=== PATIENT | female | born 1965 | race Caucasian/White ===

== ENCOUNTER → 2023-06-04 18:34 | Outpatient (REF) | payer BC, SELFPAY | LOC: MRI 18:34 | PROVIDERS: ATTENDING PHYSICIAN Podiatrist Foot & Ankle Surgery; FAMILY PHYSICIAN Family Medicine | DX: G57.62 Lesion of plantar nerve, left lower limb (principal) | CPT/HCPCS: 73718 ==

== ENCOUNTER → 2023-07-07 12:47 | Outpatient (REF) | payer BC, SELFPAY | LOC: HWWDC 12:47 | PROVIDERS: ATTENDING PHYSICIAN Family Medicine | DX: Z12.31 Encounter for screening mammogram for malignant neoplasm of breast (principal) | CPT/HCPCS: 77063; 77067 ==

== ENCOUNTER → 2023-11-17 07:08 | Outpatient (REF) | payer BC, SELFPAY ==
[2023-11-17 07:38] LABS: % Basophils 1.2 % (0-2); % Eosinophils 3.2 % (0-6); % Lymphocytes 47.7 % (20.5-51.1); % Monocytes 10.7 % (1.7-9.3); % Neutrophils 37.2 % (42.2-75.2); Absolute Eosinophils 0.1 10^3/uL (0-0.7); Absolute Lymphocytes 1.7 10^3/uL (1.2-3.4); Absolute Monocytes 0.4 10^3/uL (0.1-0.6); Absolute Neutrophils 1.3 10^3/uL (1.4-6.5); Hemoglobin 13.3 g/dL (12.0-16.0); Mean Corp Hgb Conc. 34.1 g/dL (33.0-37.0); Mean Corpuscular Hgb 30.6 pg (27.0-31.0); Mean Corpuscular Volume 89.7 fL (81.0-99.0); Mean Platelet Volume 10.3 fL (7.4-10.4); Nucleated Red Blood Cells % 0 %; Platelet Count 220 10^3/uL (130-400); Red Blood Cell Count 4.35 10^6/uL (4.20-5.40); Red Cell Dist. Width 11.8 % (11.5-14.5); White Blood Cell Count 3.5 10^3/uL (4.8-10.8)
[2023-11-17 08:12] LABS: ALT (SGPT) 30 U/L (0-35); AST (SGOT) 39 U/L (14-36); Albumin 4.8 g/dl (3.5-5.0); Alkaline Phosphatase 66 U/L (38-126); Blood Urea Nitrogen 12 mg/dl (7-17); Calcium 9.5 mg/dl (8.4-10.2); Carbon Dioxide 24 mmol/L (22-30); Chloride 102 mmol/L (98-107); Glucose 99 mg/dl (70-99); HDL Cholesterol 70 mg/dl; LDL Cholesterol, Calculated 107 mg/dl; Potassium 4.5 mmol/L (3.5-5.1); Sodium 142 mmol/L (135-145); Total Bilirubin 0.8 mg/dl (0.2-1.3); Total Cholesterol 193 mg/dl (50-199); Total Protein 7.3 g/dl (6.3-8.2); Triglyceride 82 mg/dl (10-149); Very Low Density Lipoprotein 16 mg/dl (0-30); eGFR > 60.00
== END ==
LOC: REG 07:08
PROVIDERS: ATTENDING PHYSICIAN Family Medicine
DX: E78.2 Mixed hyperlipidemia (principal); R79.9 Abnormal finding of blood chemistry, unspecified; R03.0 Elevated blood-pressure reading, without diagnosis of hypertension; N80.9 Endometriosis, unspecified
CPT/HCPCS: 36415; 80053; 80061; 85025

== ENCOUNTER → 2024-02-24 13:28 | Outpatient (REF) | payer BC, SELFPAY ==
[2024-02-24 14:33] LABS: % Basophils 0.6 % (0-2); % Eosinophils 1.5 % (0-6); % Immature Granulocytes 0.2 % (0-0.5); % Lymphocytes 39.7 % (20.5-51.1); % Monocytes 7.6 % (1.7-9.3); % Neutrophils 50.4 % (42.2-75.2); Absolute Eosinophils 0.1 10^3/uL (0-0.7); Absolute Lymphocytes 2.1 10^3/uL (1.2-3.4); Absolute Monocytes 0.4 10^3/uL (0.1-0.6); Absolute Neutrophils 2.7 10^3/uL (1.4-6.5); Hematocrit 38.6 % (37.0-47.0); Hemoglobin 13.3 g/dL (12.0-16.0); Mean Corp Hgb Conc. 34.5 g/dL (33.0-37.0); Mean Corpuscular Hgb 30.3 pg (27.0-31.0); Mean Corpuscular Volume 87.9 fL (81.0-99.0); Nucleated Red Blood Cells % 0 %; Platelet Count 226 10^3/uL (130-400); Red Blood Cell Count 4.39 10^6/uL (4.20-5.40); Red Cell Dist. Width 11.8 % (11.5-14.5); White Blood Cell Count 5.3 10^3/uL (4.8-10.8)
== END ==
LOC: REG 13:28
PROVIDERS: ATTENDING PHYSICIAN Family Medicine
DX: D72.819 Decreased white blood cell count, unspecified (principal)
CPT/HCPCS: 36415; 85025

== ENCOUNTER 2024-04-18 15:40 | Emergency (ER) | payer BC, SELFPAY ==
[2024-04-18 16:05] VITALS: BP 137/96
[2024-04-18] MEDS: LOPRESSOR 5 MG IV (16:09)
[2024-04-18 16:14] LABS: % Basophils 0.5 % (0-2); % Eosinophils 0.9 % (0-6); % Immature Granulocytes 0.3 % (0-0.5); % Lymphocytes 35.4 % (20.5-51.1); % Neutrophils 54.9 % (42.2-75.2); Absolute Eosinophils 0.1 10^3/uL (0-0.7); Absolute Lymphocytes 2.3 10^3/uL (1.2-3.4); Absolute Monocytes 0.5 10^3/uL (0.1-0.6); Absolute Neutrophils 3.6 10^3/uL (1.4-6.5); Hematocrit 37.6 % (37.0-47.0); Hemoglobin 13.2 g/dL (12.0-16.0); Mean Corp Hgb Conc. 35.1 g/dL (33.0-37.0); Mean Corpuscular Hgb 30.4 pg (27.0-31.0); Mean Corpuscular Volume 86.6 fL (81.0-99.0); Mean Platelet Volume 10.1 fL (7.4-10.4); Nucleated Red Blood Cells % 0 %; Platelet Count 233 10^3/uL (130-400); Red Blood Cell Count 4.34 10^6/uL (4.20-5.40); Red Cell Dist. Width 11.9 % (11.5-14.5); White Blood Cell Count 6.6 10^3/uL (4.8-10.8)
[2024-04-18 16:36] VITALS: BP 149/96
[2024-04-18 16:51] LABS: ALT (SGPT) 28 U/L (0-35); AST (SGOT) 33 U/L (14-36); Albumin 5.1 g/dl (3.5-5.0); Alkaline Phosphatase 76 U/L (38-126); Blood Urea Nitrogen 15 mg/dl (7-17); Calcium 9.6 mg/dl (8.4-10.2); Carbon Dioxide 25 mmol/L (22-30); Chloride 102 mmol/L (98-107); Glucose 132 mg/dl (70-99); Magnesium 2.1 mg/dl (1.6-2.3); Potassium 3.8 mmol/L (3.5-5.1); Sodium 139 mmol/L (135-145); Total Bilirubin 0.6 mg/dl (0.2-1.3); Total Protein 7.8 g/dl (6.3-8.2); eGFR > 60.00
--- NOTE | 2024-04-18 17:35 | ED.GENMED ---
History of Present Illness
General
Chief Complaint: Heart Rate Problem
Source: patient
Exam Limitations: none
Time Seen by Provider: 04/18/24 15:44
History of Present Illness
History of Present Illness:
58-year-old female with a history of pulmonary embolism in the past who presents after she did not feel quite right and felt her heart pounding. 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 Patient denies
shortness of breath. No leg swelling. Patient but she has had bigeminy in the past. Does have a history of bowel resection.
Past History
Past History
ED Past Medical History: Asthma and Other (PE, cecal mass with partial bowel resection)
ED Past Surgical History: Other (Surgery for perforated bowel, mastoid surgery, vein stripping)
Social History
Tobacco: Non-smoker
Alcohol: Occasional
Drug: None
Personal:
Living: with family
Employment: Employed
Phy Exam
Physical Exam
Physical Exam:
CONSTITUTIONAL Patient alert and oriented to person, place and time. Well-appearing. Vital signs reviewed.
HEAD atraumatic, normocephalic.
EYES eyelids normal to inspection, Extraocular muscles intact, Conjunctiva normal, Sclera normal.
NECK normal range of motion, Trachea midline, no jugular venous distention.
RESPIRATORY CHEST No respiratory distress noted, Chest expansion equal, Bilateral breath sounds clear.
CARDIOVASCULAR regular and tachycardic, Heart sounds normal.
ABDOMEN abdomen nontender, Bowel sounds normal. No distention.
BACK normal inspection, no obvious deformities
UPPER EXTREMITY range of motion normal, Motor strength normal, no cyanosis, no edema.
LOWER EXTREMITY range of motion normal, Motor strength normal, no cyanosis, no edema.
NEURO Speech normal, No focal motor deficits, [place] coma scale 15, Memory normal, Cranial Nerves intact to screening exam.
SKIN skin warm, dry, and normal in color.
Course
Orders/Labs/Results
Orders:
Orders
04/18/24
Electrocardiogram (*1) Stat
Reason for Study: Chest Pain
Comment: already done
04/18/24 15:41
Electrocardiogram (*1) Urgent
Reason for Study: Tachycardia
04/18/24 15:42
EKG- Treatment ONCE
04/18/24 15:43
Adenosine [Adenocard] 18 mg .ROUTE .STK-MED ONE
04/18/24 16:00
Metoprolol [Lopressor] 5 mg IV NOW STA
04/18/24 16:01
Complete Blood Count/With Diff Urgent
Comprehensive Metabolic Panel Urgent
Magnesium Urgent
TSH Urgent
04/18/24 17:59
D-Dimer Urgent
Abnormal Lab Results
04/18/24
16:01
Glucose 132 H mg/dl
(70-99)
Albumin 5.1 H g/dl
(3.5-5.0)
04/18/24 16:01
04/18/24 16:01
Vital Signs
Initial and Last Documented VS:
Initial Vital Signs
Pulse Resp BP Pulse Ox
107 20 137/96 98
04/18/24 16:05 04/18/24 16:05 04/18/24 16:05 04/18/24 16:05
Last Documented Vital Signs
Pulse Resp BP Pulse Ox
74 20 149/96 98
04/18/24 16:36 04/18/24 16:05 04/18/24 16:36 04/18/24 16:05
MDM/Problems Addressed
MDM/Problems Addressed:
SVT, bigeminy
*Pulse Oximetry
Patient hypoxic: no
*EKG
Interpreted by ED Provider?: Yes
Interpretation: abnormal
Rate: tachycardiac
Rhythm: SVT and other (Bigeminy)
[place]: normal axis
Ischemia: non-specific ST changes
*Cable Inspector Interpretation
Rate: tachycardiac
Interpretation: abnormal
Rhythm: SVT
*Critical Care Note
Total Time (30-74mins, 75-104mins- exclusive of procedures): 40 minutes
Data Reviewed
Review of Other/Old Records Reveals: Operative Reports (Operative report from July 2017 reviewed)
Source: patient
Prescriptions/Medications Considered But Not Given:
Considered adenosine but initially in bigeminy. Patient broke prior to requiring AV blockade
Patient Management
Escalation/DeEscalation of care consider admission/obs:
Patient broke on her own. Has been hypotensive so her Lopressor given and heart rate much improved. Will start metoprolol XL 25 mg daily. She will follow-up as an outpatient
ED Attending Note
-
Portions of this chart may have been created with voice recognition software.� Occasional wrong word or��sound alike� substitutions may have occurred due to the inherent limitations of voice recognition software.
Discharge Plan
Departure
Patient Disposition: Home (Routine Discharge)
Date of Disposition: 04/18/24
Time of Disposition: 17:35
Patient with high blood pressure during this ER visit?: Yes
Discharge Problem:
SVT (supraventricular tachycardia), Uncontrolled hypertension
Instructions: Supraventricular tachycardia (SVT), BLOOD PRESSURE
Prescriptions:
New
metoprolol succinate [Toprol XL] 25 mg tablet extended release 24 hr
25 mg PO DAILY Qty: 30 0RF
No Action
acetaminophen 325 MG tablet
650 mg PO Q4HPRN PRN (Reason: mild to moderate pain) Qty: 0 0RF
ibuprofen 200 MG tablet
400 - 600 mg PO Q6HPRN PRN (Reason: mild to moderate pain) Qty: 0 0RF
albuterol sulfate 1 PUFF HFA aerosol inhaler
2 puff inhalation R Q4HPRN PRN (Reason: SOB)
Multivitamin Gummies
1 tab PO DAILY
calcium
1 tab PO DAILY
magnesium
1 tab PO DAILY
Referrals:
Maryanne Romero MD [Family Provider] -
Activity Restrictions/Additional Instructions:
Please see your doctor next 3 to 5 days for follow-up and reevaluation. Return immediately for worsening symptoms, chest pain, shortness of breath, palpitations or any other concerns. Please replace fluids and avoid excessive caffeine use.
Your blood pressure was elevated while in the Emergency Department, please have your doctor re-evaluate it in the next 48 hours as untreated hypertension may lead to serious complications.
Interventions
Interventions:
*Risk Screen - Suicide Last Done: 04/18/24 18:16
*General Assessment Last Done: 04/18/24 18:16
*Neglect/Abuse Screening Last Done: 04/18/24 18:16
*Nursing Disposition Last Done: 04/18/24 18:17
ED- Cardiac Assessment Last Done: 04/18/24 16:00
ED- Pulmonary Assessment Last Done: 04/18/24 16:00
Discharge Date and Time
Discharge Date/Time: 04/18/24 18:17
Print Language: LAO
[2024-04-18 18:25] LABS: D-Dimer < 0.27 ug/mlFEU (0.00-0.50)
[2024-04-18 22:00] LABS: TSH 2.11 uIU/ml (0.47-4.68)
== END 2024-04-18 18:17 | disposition home or self-care (01) ==
LOC: EMR 15:40
PROVIDERS: EMERGENCY PHYSICIAN Emergency Medicine; FAMILY PHYSICIAN Family Medicine
DX: I47.10 Supraventricular tachycardia, unspecified (principal); I10 Essential (primary) hypertension; J45.909 Unspecified asthma, uncomplicated; Z86.711 Personal history of pulmonary embolism; Z90.49 Acquired absence of other specified parts of digestive tract
CPT/HCPCS: 96374; 99284; 80053; 83735; 84443; 85025; 85379; 93005; J0153

== ENCOUNTER → 2024-06-07 14:51 | Outpatient (REF) | payer BC, SELFPAY | LOC: RCS 14:51 | PROVIDERS: ATTENDING PHYSICIAN Internal Medicine Cardiovascular Disease; FAMILY PHYSICIAN Family Medicine | DX: I49.3 Ventricular premature depolarization (principal) | CPT/HCPCS: 93306 ==

== ENCOUNTER → 2024-06-21 12:47 | Outpatient (REF) | payer BC, SELFPAY ==
[2024-06-21 13:43] LABS: % Basophils 0.5 % (0-2); % Eosinophils 2.1 % (0-6); % Immature Granulocytes 0.2 % (0-0.5); % Lymphocytes 34.5 % (20.5-51.1); % Monocytes 7.6 % (1.7-9.3); % Neutrophils 55.1 % (42.2-75.2); Absolute Eosinophils 0.1 10^3/uL (0-0.7); Absolute Monocytes 0.4 10^3/uL (0.1-0.6); Absolute Neutrophils 3.2 10^3/uL (1.4-6.5); Hematocrit 38.5 % (37.0-47.0); Hemoglobin 13.1 g/dL (12.0-16.0); Mean Corpuscular Hgb 30.2 pg (27.0-31.0); Mean Corpuscular Volume 88.7 fL (81.0-99.0); Mean Platelet Volume 9.9 fL (7.4-10.4); Nucleated Red Blood Cells % 0 %; Platelet Count 237 10^3/uL (130-400); Red Blood Cell Count 4.34 10^6/uL (4.20-5.40); Red Cell Dist. Width 11.8 % (11.5-14.5); White Blood Cell Count 5.8 10^3/uL (4.8-10.8)
[2024-06-21 15:19] LABS: Blood Urea Nitrogen 12 mg/dl (7-17); Calcium 10.2 mg/dl (8.4-10.2); Carbon Dioxide 27 mmol/L (22-30); Chloride 103 mmol/L (98-107); Glucose 111 mg/dl (70-99); Potassium 4.8 mmol/L (3.5-5.1); Sodium 142 mmol/L (135-145); eGFR > 60.00
== END ==
LOC: RCS 12:47
PROVIDERS: ATTENDING PHYSICIAN Podiatrist Foot & Ankle Surgery; FAMILY PHYSICIAN Family Medicine
DX: Z01.810 Encounter for preprocedural cardiovascular examination (principal); Z01.812 Encounter for preprocedural laboratory examination; Z01.811 Encounter for preprocedural respiratory examination
CPT/HCPCS: 36415; 71046; 80048; 85025; 93005

== ENCOUNTER → 2024-07-12 11:50 | Outpatient (REF) | payer BC, SELFPAY | LOC: CLAB 11:50 | PROVIDERS: ATTENDING PHYSICIAN Podiatrist Foot & Ankle Surgery | DX: G57.61 Lesion of plantar nerve, right lower limb (principal) | CPT/HCPCS: 88304 ==

== ENCOUNTER → 2024-07-20 07:59 | Outpatient (REF) | payer BC, SELFPAY | LOC: HWWDC 07:59 | PROVIDERS: ATTENDING PHYSICIAN Family Medicine | DX: Z12.31 Encounter for screening mammogram for malignant neoplasm of breast (principal) | CPT/HCPCS: 77063; 77067 ==

== ENCOUNTER → 2024-09-23 19:41 | Outpatient (REF) | payer BC, SELFPAY | LOC: MRI 3T 19:41 | PROVIDERS: ATTENDING PHYSICIAN Physician Assistant Surgical; FAMILY PHYSICIAN Family Medicine | DX: M54.16 Radiculopathy, lumbar region (principal) | CPT/HCPCS: 72148 ==

== ENCOUNTER → 2025-01-17 07:20 | Outpatient (REF) | payer BC, SELFPAY ==
[2025-01-17 08:07] LABS: Hematocrit 34.1 % (37.0-47.0); Hemoglobin 11.6 g/dL (12.0-16.0); Mean Corp Hgb Conc. 34.0 g/dL (33.0-37.0); Mean Corpuscular Volume 89.5 fL (81.0-99.0); Nucleated Red Blood Cells % 0 %; Platelet Count 233 10^3/uL (130-400); Red Cell Dist. Width 11.6 % (11.5-14.5)
[2025-01-17 08:37] LABS: ALT (SGPT) 28 U/L (0-35); AST (SGOT) 30 U/L (14-36); Albumin 4.9 g/dl (3.5-5.0); Alkaline Phosphatase 49 U/L (38-126); Blood Urea Nitrogen 21 mg/dl (7-17); Calcium 9.4 mg/dl (8.4-10.2); Carbon Dioxide 28 mmol/L (22-30); Chloride 102 mmol/L (98-107); Glucose 110 mg/dl (70-99); HDL Cholesterol 60 mg/dl; LDL Cholesterol, Calculated 133 mg/dl; Potassium 5.4 mmol/L (3.5-5.1); Sodium 134 mmol/L (135-145); Total Protein 7.6 g/dl (6.3-8.2); Very Low Density Lipoprotein 12 mg/dl (0-30); eGFR > 60.00
== END ==
LOC: REG 07:20
PROVIDERS: ATTENDING PHYSICIAN Family Medicine
DX: E78.2 Mixed hyperlipidemia (principal); Z00.00 Encounter for general adult medical examination without abnormal findings
CPT/HCPCS: 36415; 80053; 80061; 85025

== ENCOUNTER → 2025-03-08 07:00 | Outpatient (REF) | payer BC, SELFPAY ==
[2025-03-08 08:40] LABS: Hematocrit 34.8 % (37.0-47.0); Hemoglobin 11.6 g/dL (12.0-16.0); Mean Corp Hgb Conc. 33.3 g/dL (33.0-37.0); Mean Corpuscular Volume 88.5 fL (81.0-99.0); Nucleated Red Blood Cells % 0 %; Platelet Count 360 10^3/uL (130-400); Red Cell Dist. Width 11.4 % (11.5-14.5)
[2025-03-08 09:03] LABS: Blood Urea Nitrogen 15 mg/dl (7-17); Calcium 9.6 mg/dl (8.4-10.2); Carbon Dioxide 25 mmol/L (22-30); Chloride 100 mmol/L (98-107); Glucose 128 mg/dl (70-99); Potassium 4.8 mmol/L (3.5-5.1); Sodium 137 mmol/L (135-145); eGFR > 60.00
== END ==
LOC: REG 07:00
PROVIDERS: ATTENDING PHYSICIAN Family Medicine
DX: E87.5 Hyperkalemia (principal); R79.9 Abnormal finding of blood chemistry, unspecified; D72.819 Decreased white blood cell count, unspecified
CPT/HCPCS: 36415; 80048; 85025